=== PATIENT | male | born 1945 | race Caucasian/White ===

== ENCOUNTER 2018-05-21 10:00 | Inpatient (IN) | payer MEDICARE, OTHER, SELFPAY ==
[2018-05-21] VITALS (12 sets, daily range): BP systolic 96–164; BP diastolic 61–82; PULSE 83–98; RESP 12–18; TEMP 36.2–36.7; O2SAT 87–96; BMI 20.9; BMI 24.7
--- NOTE | 2018-05-21 10:19 | CT_ITS ---
STUDY: CT ABDOMEN AND PELVIS WITHOUT CONTRAST REASON FOR EXAM: Male, 72 years old. GI bleed. History of diverticulitis. RADIATION DOSAGE (If Supplied By Facility): CTDIvol = ( 12.27 ) mGy, DLP = ( 656.09 ) mGycm TECHNIQUE: Transaxial images were obtained from the dome of the diaphragm to the symphysis pubis without oral contrast, and without intravenous contrast. Sagittal and coronal images were reconstructed. Individualized dose optimization techniques were used for this CT. COMPARISON: Comparison is made with prior examination dated January 01, 2013. FINDINGS: Calcification of the subcarinal lymph nodes. Increased markings in the lower lungs worse on the left side with cystic changes suggestive of chronic scarring. Calcified pleural plaques along the posteromedial aspect of the right hemithorax. Coronary artery calcification. Normal liver. There are multiple small gallstones. Normal spleen. There are pancreatic calcifications in the distribution of the ducts consistent with chronic pancreatitis. Normal bilateral adrenal glands. Normal right kidney. Normal left kidney. There is a moderate-sized hiatal hernia. Normal small intestine. There are multiple colonic diverticula consistent with diverticulosis. The appendix is visualized and appears normal. There is diffuse atherosclerotic calcification of the abdominal aorta, without a demonstrated aneurysm. Normal inferior vena cava. Normal retroperitoneum. Diffuse irregular thickening of the urinary bladder wall worse on the left side. Cystoscopy is recommended for further evaluation. There is enlargement of the prostate gland. It measures 3.7 cm x 4.8 cm. There is a left-sided inguinal hernia containing adipose tissue. There are diffuse degenerative changes of the visualized lumbar spine. Stable collapse of the L4 vertebrae. Prior laminectomy and fusion at the L3-L4 level. CT/Abdomen/Pelvis without Cont IMPRESSION: Multiple small gallstones. Calcifications in the pancreas suggestive of chronic pancreatitis. Diffuse irregular bladder wall thickening worse on the left side. Anal hernia. Electronically Signed: Magen Juan MD at 11:25 EST Tel [phone], Service support ,
--- NOTE | 2018-05-21 10:23 | ED.DCSUM_ITS ---
- ER Visit Summary Date of Service: 05/21/18 Chief Complaint: Bright red blood per rectum History of Present Illness: The patient is a 72 M patient states noted bright red blood after bowel movement at 8 AM this morning. Initial formed stools of blood, had additional 2 runny bloody stools since then. Mild lightheaded symptoms. No chest pains or shortness of breath. No anticoagulation medicines. History of diverticulitis in the past requiring hemicolectomy 1990. He states that colonoscopy [address] Guevara. No fever, chills, sweats. No urinary symptoms. No history of blood transfusions. Physical Examination: General: Alert and oriented ?3, no acute distress HEENT: Normocephalic, atraumatic. Moist mucosa membranes. Normal conjunctiva Neck: supple, nontender. Cardiovascular: Regular rate and rhythm, no murmurs Respiratory: Normal breath sounds, symmetric, no distress Abdomen: Soft, mild left lower quadrant tenderness with no guarding or rebound, nondistended Rectal: No hemorrhoids, dark red blood was noted. Guaiac positive. Extremities: Nontender, no edema, pulses intact ?4 Neuro: no focal neurological deficits. Skin: No pallor Test Results: Hemoglobin 12.7. Creatinine 2.01. BUN 39. Coags normal. UA pending. CT abdomen pelvis without contrast: Enlarged prostate irregular bladder. Gallstones. Calcifications of pancreas. Emergency Department Course and Treatment: Patient was guaiac positive. Orthostatic positive he states he is minimally lightheaded. Hemoglobin stable at 12.7. He had small episodes of bloody stools in the ED. He is not on any anticoagulation medicines. He did have a creatinine 2.01, last labs were from 2014 and records was normal at that time. There have been told he has had kidney insufficiency. Suspect new. States decreased oral intake, will add IV fluids. Secondary to mild pain left lower quadrant CT scan obtained rule out diverticulitis. This was negative. Have noted abnormal bladder thickening with enlarged prostate. We will add a UA. He has no urine symptoms. Spoke with Dr. Johnson who did a colonoscopy 4 years ago approximately on the patient's outpatient. He will follow as an inpatient. Spoke with hospitalist, Dr. Jones for admission. Treatment Plan: [] Disposition: Admission Impression: 1. GI bleed 2. Acute kidney injury This note was generated with Dragon dictation software. It may contain incorrect words, spelling, and punctuation that were not noted in review of the chart prior to signing ED Disposition - Plan for ED Patient: Disposition: Acute Care Hospital [facility] Chief Complaint: GI Bleed Diagnosis: Lower GI bleed, Acute kidney injury Referrals: Alberto Woods MD [Primary Care Provider] -
[2018-05-21] MEDS: 0.9% Normal Saline 1,000 ML 150 ML IV ×3 (10:49→21:47)
[2018-05-21 10:52] LABS: Absolute Lymphocyte Count 1.71 X10^3/ul (0.83-4.51); Absolute Neutrophil Count 4.9 X10^3/uL (2.0-7.7); Basophil# 0.09 X10^3/uL; Basophil% 1.1 % (0-1); Eosinophil# 0.09 X10^3/uL; Eosinophils% 1.1 % (0-5); Hematocrit 39.2 % (40-54); Hemoglobin 12.7 g/dl (13.0-16.5); Lymphocyte # 1.71 X10^3/ul (4.0); Lymphocyte % 21.7 % (19-41); Mean Corp Hgb Conc 32.4 g/gl (32-36); Mean Corpuscular Hgb 32.5 pg (27.0-32.0); Mean Corpuscular Volume 100.3 fL (80-94); Mean Platelet Vol. 11.8 fl (6.2-12.0); Monocyte# 1.14 X10^3/uL; Monocyte% 14.4 % (0-10); Neutrophil # 4.85 X10^3/uL (2.7-7.7); Neutrophil % 61.6 % (47-70); Platelet Count 241 K/mm3 (150-450); RBC Distribution Width CV 16.3 % (11.6-14.6); RBC Distribution Width SD 59.5 fl (35.1-43.9); Red Blood Count 3.91 M/mm3 (4.6-6.2); White Blood Count 7.9 K/mm3 (4.4-11.0)
[2018-05-21 10:54] LABS: POSITIVE COUNT NO; POSITIVE DIFFERENTIAL NO; POSITIVE MORPHOLOGY NO
[2018-05-21 10:57] LABS: Prothrombin Time (Protime)PT. 12.8 SECONDS (11.7-14.9)
[2018-05-21 10:58] LABS: Partial Thromboplast Time 30.9 Seconds (24.1-36.2)
[2018-05-21 11:04] LABS: Anion Gap 11 (5-15); BUN 39 mg/dL (7-18); BUN/Creat Ratio 19.4 RATIO (10-20); Chloride 101 mmol/L (98-107); Creatinine, Serum 2.01 mg/dL (0.70-1.30); EST Glomerular Filtration Rate 35 mL/min (>60); Est Glom Filt Rate - Afr Amer 42 mL/min (>60); Estimated Creatinine Clearance 31.88 ml/min; Glucose 87 mg/dL (74-106); Sodium Level 136 mmol/L (136-145)
--- NOTE | 2018-05-21 12:43 | HP.PCM_ITS ---
History of Present Illness Date of Admission: 05/21/18 Chief Complaint: rectal bleeding The patient is a 72 year old M past medical history as listed below including history of hemicolectomy on account of diverticular disease. He was admitted through the ED on 05/21/2018 with a complaint of rectal bleeding which started around 8 AM this morning. Bleeding was painless consider mario blood. He denied any lightheadedness or dizziness or palpitations or abdominal pain. He had 3 episodes of such rectal bleeding and so decided to come to the ED. Vitals in the ED showed blood pressure of 96/61 was otherwise stable. Labs showed creatinine of 2.01 with baseline being around 0.8. CBC showed hemoglobin of 12.7 and platelets of 241. CT of the abdomen and pelvis showed multiple gallstones with calcifications in the pancreas suggestive of chronic pancreatitis and diffuse irregular bladder wall thickening was on the left side as well as an anal hernia and multiple colonic diverticula consistent with diverticulosis. He has been admitted to be managed for lower GI bleeding due to diverticulosis. [] Past Medical History Past Medical History (Chronic Problems): Chronic Problems History of chronic obstructive pulmonary disease (Chronic) Benign prostatic hypertrophy (Chronic) COPD (chronic obstructive pulmonary disease) (Chronic) Essential hypertension (Chronic) Diverticulosis of colon without diverticulitis (Chronic) s/p left hemicolectomy 1990 for diverticulitis DJD (degenerative joint disease) (Chronic) Allergies atorvastatin calcium [From Lipitor] Adverse Reaction (Verified 05/21/18 10:02) Pain in joints lisinopril Adverse Reaction (Verified 05/21/18 10:02) Swelling Home Medications: Ambulatory Orders Medication Instructions Recorded Metoprolol Tartrate [Lopressor 50 mg PO BID 12/01/13 (beta elizabeth)] Simvastatin [Zocor] 40 mg PO QHS 12/01/13 Tamsulosin HCl [Flomax] 0.4 mg PO DAILY 12/01/13 Amlodipine [Norvasc] 5 mg PO DAILY 05/16/15 Budesonide/Formoterol 160/4.5 2 puff INHALATION BID 05/16/15 [Symbicort 160/4.5 Mcg Inhaler (SP)] Multivitamins,Therapeutic 1 tab PO DAILY 05/16/15 [Multivitamin] Sildenafil Citrate [Viagra] 100 mg PO PRN PRN 05/16/15 traMADol [Ultram] 50 mg PO Q6H PRN PRN 05/16/15 Esomeprazole Mag Trihydrate 20 mg PO DAILY 05/21/18 [Nexium] Surgical History: - - hemicolectomy due to diverticular disease Psychiatric History: No pertinent psych hx Lives: Spouse/ Significant Other Smoking Status: Former smoker Tobacco Use: Non-smoker Alcohol: None Drugs: None - *Family History Maternal History Items: Cancer Review of Systems Constitutional: Denies: Chills, Fever, Malaise, Weakness, Weight Change, Fatigue HEENT: Denies: Head Aches, Sinus Congestion, Sinus Drainage Cardiovascular: Denies: Chest Pain, Palpitations Respiratory: Denies: Cough, Shortness of Breath, Shortness of breath at rest, Sputum production Gastrointestinal: Reports: Hematochezia. Denies: Abdominal Pain, Hematemesis, Nausea, Melena, Vomiting Genitourinary: Denies: Dysuria Musculoskeletal: Denies: Joint Pain, Joint Tenderness Skin: Denies: Rash, Wounds Neurological: Denies: Numbness, Tingling, Focal weakness Psychiatric: Denies: Anxiety, Depression, Homicidal Ideations, Suicidal Ideations Hematologic/ Lymphatic: Denies: Easy Bruising, Easy Bleeding VTE Information - Inpt Only VTE Present on Admission: No VTE Mechan Device Prophylaxis: SCD's VTE Pharm Prophylaxis ordered?: Yes Reason prophylaxis not ordered:: Medical Contraindication - rectal bleeding Patient Problems: Active and Suspected Problems Lower GI bleed (Acute) Acute kidney injury (Acute) - Physical Exam General: Alert, Oriented x3, Cooperative, No apparent distress HEENT: Atraumatic, PERRLA, EOMI, Normocephalic Oral: Moist Mucosa Neck: Supple, No JVD, Negative Carotid Bruits Lungs: Clear to auscultation, Normal air movement, No rhonchi, No wheeze, No rales Cardiovascular: Regular rate, Regular Rhythm, Normal S1, Normal S2, No murmurs Abdomen: Bowel Sounds Present, Soft, Non Tender, Non-Distended, No Hepato- splenomegaly Extremities: No clubbing, No cyanosis, No edema, Capillary Refill Less than 3 Seconds Skin: No rashes, No breakdown Musculoskeletal: No Tenderness to Palpation of Joints or Extremities Lymphatic: No Cervical, Supraclavicular, or Inguinal Adenopathy Neurological: Cranial nerves II-XII grossly intact, Neuro grossly intact, Motor Exam 5/5 strength throughout Psych/Mental Status: Normal Affect, Appropriate, Alert and oriented to time, place, person, mood and affect Vital Signs Temp Pulse Resp BP Pulse Ox 97.2 F L 86 17 136/76 H 87 05/21/18 10:03 05/21/18 10:45 05/21/18 10:42 05/21/18 10:45 05/21/18 10:42 Oxygen Delivery Method Room Air Weight: 154 lb 1.65 oz Body Mass Index (BMI) 20.9 Microbiology Past 72 Hours 05/21/18 10:25 Stool Occult Blood (VARGAS) - Final Stool Occult Blood Positive Laboratory Tests Past 24 Hrs 05/21/18 05/21/18 05/21/18 10:36 10:36 10:36 WBC 7.9 RBC 3.91 L Hgb 12.7 L Hct 39.2 L MCV 100.3 H MCH 32.5 H MCHC 32.4 RDW 16.3 H RDW Differential 59.5 H Plt Count 241 MPV 11.8 Immature Gran % (Auto) 0.100 Neut % (Auto) 61.6 Lymph % (Auto) 21.7 [place] % (Auto) 14.4 H Eos % (Auto) 1.1 Baso % (Auto) 1.1 H Absolute Neuts (auto) 4.9 Absolute Lymphs (auto) 1.71 Total Counted Not Reportable PT 12.8 INR 1.0 APTT 30.9 Sodium 136 Potassium 4.0 Chloride 101 Carbon Dioxide 24.0 Anion Gap 11 BUN 39 H Creatinine 2.01 H Estim Creat Clear Calc 31.88 Est GFR (MDRD) Af Amer 42 L Est GFR (MDRD) Non-Af 35 L BUN/Creatinine Ratio 19.4 Glucose 87 Calcium 9.0 Blood Type Antibody Screen 05/21/18 10:36 WBC RBC Hgb Hct MCV MCH MCHC RDW RDW Differential Plt Count MPV Immature Gran % (Auto) Neut % (Auto) Lymph % (Auto) [place] % (Auto) Eos % (Auto) Baso % (Auto) Absolute Neuts (auto) Absolute Lymphs (auto) Total Counted PT INR APTT Sodium Potassium Chloride Carbon Dioxide Anion Gap BUN Creatinine Estim Creat Clear Calc Est GFR (MDRD) Af Amer Est GFR (MDRD) Non-Af BUN/Creatinine Ratio Glucose Calcium Blood Type O POSITIVE Antibody Screen NEGATIVE Diagnostic Data Abdomen/Pelvis CT 05/21/18 10:19 IMPRESSION: Multiple small gallstones. Calcifications in the pancreas suggestive of chronic pancreatitis. Diffuse irregular bladder wall thickening worse on the left side. Anal hernia. Electronically Signed: Magen Juan MD at 11:25 EST Tel [phone], Service support , Assessment/Plan All Active Problems Lower GI bleed (Acute) Acute kidney injury (Acute) Hypoxia (Acute) Syncope and collapse (Acute) Pleural effusion on left (Acute) Lower gastrointestinal bleeding (Resolved) 72 y/o male with a history of diverticular disease presenting with a complaint of rectal bleeding which started this morning. 1. Lower Gi bleed due to diverticular bleed * has a history of such bleeds in the past, and has had hemicolectomy due to diverticular bleed * will admit to [facility] with telemetry * keep NPO for now * IVF NS @ 150cc/hr * general surgery (Dr Guevara) consulted * 2. ?KIMBERLY: * Cr is 2.01. * Baseline from 2015 was ~ 0.7. * Denies any diagnosis of CKD since then. * WIll hydrate and monitor for improvement. 3. Hypertension: stable. On amlodipine 5mg daily and metoprolol 50mg bid. Will continue 4. COPD: on symbicort. WIll give breathing treatments 5. Hyperlipidemia: on simvastatin 6. BPH: on tamsulosin. DVT prophylaxis: SCDs. No anticoagulant o/a of rectal bleeding. Code status: Patient counseled extensively about different types of CODE STATUS including full code, DNR CCA and DNR CCA. Patient elects to be full code. Total [id number] time 17 minutes. Code Visit Inpatient E&M: 72346 Init Hosp L3 Procedures: 79095 Advncd Care Plan 30 Min
--- NOTE | 2018-05-21 12:47 | NURSING ---
124 GI BLEED, KIMBERLY KIRBY
[2018-05-21] MEDS: Albuterol 2.5 MG/3 ML VIAL.NEB. INHALATION (18:40)
[2018-05-21] MEDS: Budesonide Respules 0.5 MG/2 ML AMPUL.NEB. INHALATION (18:40)
--- NOTE | 2018-05-21 20:04 | PCM.CONS.GEN ---
Reason for Consult Date of Consultation: 05/21/18 Reason for Consultation: GI bleed History of Present Illness: The patient is a 72 year old M presents with what he notes to be 8 bloody bowel movements for the last 24 hours. The patient noted relatively normal bowel movement followed by what he described his liquid watery bloody stool for which the multiple liquid bloody bowel movements. He presented to the hospital and was found to have mild lower abdominal tenderness. He was found to be guaiac positive. A CT scan was obtained which demonstrated diverticulosis without additional abdominal pathology. I evaluated the patient 2013 performing upper and lower endoscopy are similar episode. At that time the patient had a mild gastritis and pancolitis. He was felt that his GI bleed source was likely a diverticular bleed. In 2014, the patient had approximately 20 pound weight loss after a diagnosis of pneumonia and epigastric symptoms. I performed upper endoscopy at that time which demonstrated gastritis a small hiatal hernia and some distal esophagitis. The patient was maintained in a proton pump inhibitor was doing well since that time prior to these events. The patient is a past history of her syncope, hypercholesterolemia, COPD and benign prostatic hypertrophy. he underwent a sigmoid resection for diverticulitis in the . He is also undergoing through to perfusion in addition to multiple endoscopies. Past Medical History Past Medical History (Chronic Problems): Chronic Problems History of chronic obstructive pulmonary disease (Chronic) Benign prostatic hypertrophy (Chronic) COPD (chronic obstructive pulmonary disease) (Chronic) Essential hypertension (Chronic) Diverticulosis of colon without diverticulitis (Chronic) s/p left hemicolectomy 1990 for diverticulitis DJD (degenerative joint disease) (Chronic) Allergies atorvastatin calcium [From Lipitor] Adverse Reaction (Verified 05/21/18 10:02) Pain in joints lisinopril Adverse Reaction (Verified 05/21/18 10:02) Swelling Home Medications: Ambulatory Orders Medication Instructions Recorded Metoprolol Tartrate [Lopressor 50 mg PO BID 12/01/13 (beta elizabeth)] Simvastatin [Zocor] 40 mg PO QHS 12/01/13 Tamsulosin HCl [Flomax] 0.4 mg PO DAILY 12/01/13 Amlodipine [Norvasc] 5 mg PO DAILY 05/16/15 Budesonide/Formoterol 160/4.5 2 puff INHALATION BID 05/16/15 [Symbicort 160/4.5 Mcg Inhaler (SP)] Multivitamins,Therapeutic 1 tab PO DAILY 05/16/15 [Multivitamin] Sildenafil Citrate [Viagra] 100 mg PO PRN PRN 05/16/15 traMADol [Ultram] 50 mg PO Q6H PRN PRN 05/16/15 Esomeprazole Mag Trihydrate 20 mg PO DAILY 05/21/18 [Nexium] Surgical History: - - hemicolectomy due to diverticular disease Psychiatric History: No pertinent psych hx Lives: Spouse/ Significant Other Smoking Status: Former smoker Tobacco Use: Non-smoker Alcohol: None Drugs: None - *Family History Maternal History Items: Cancer Review of Systems Constitutional: Denies: Chills, Fever, Weight Change HEENT: Denies: Head Aches, Sinus Congestion, Sinus Drainage Cardiovascular: Denies: Chest Pain, Palpitations Respiratory: Denies: Cough, Shortness of breath at rest, Sputum production Gastrointestinal: Reports: Hematochezia. Denies: Abdominal Pain, Nausea, Vomiting Genitourinary: Denies: Dysuria Musculoskeletal: Denies: Joint Pain, Joint Tenderness Skin: Denies: Rash, Wounds Neurological: Denies: Numbness, Tingling, Focal weakness Psychiatric: Denies: Anxiety, Depression, Homicidal Ideations, Suicidal Ideations Hematologic/ Lymphatic: Denies: Easy Bruising, Easy Bleeding Patient Problems: Active and Suspected Problems Lower GI bleed (Acute) Acute kidney injury (Acute) - Physical Exam General: Alert, Oriented x3, Cooperative HEENT: Atraumatic, PERRLA, EOMI, Normocephalic Neck: Supple, No JVD, Negative Carotid Bruits Lungs: Clear to auscultation, Normal air movement Cardiovascular: Regular rate, No murmurs Abdomen: Bowel Sounds Present, Soft, Non Tender Extremities: No edema, Capillary Refill Less than 3 Seconds Skin: No rashes, No breakdown Musculoskeletal: No Tenderness to Palpation of Joints or Extremities Neurological: Cranial nerves II-XII grossly intact Psych/Mental Status: Normal Affect, Appropriate Vital Signs Temp Pulse Resp BP Pulse Ox 97.9 F 91 18 139/79 H 92 05/21/18 17:09 05/21/18 18:41 05/21/18 18:41 05/21/18 17:09 05/21/18 18:41 Oxygen Delivery Method Room Air Weight: 83 kg Body Mass Index (BMI) 24.7 Intake and Output for Last 24 Hours 05/19/18 05/20/18 05/21/18 23:59 23:59 23:59 Intake Total 258 / 258 Balance 258 / 258 Microbiology Past 72 Hours 05/21/18 10:25 Stool Occult Blood (VARGAS) - Final Stool Occult Blood Positive Laboratory Tests Past 24 Hrs 05/21/18 05/21/18 05/21/18 10:36 10:36 10:36 WBC 7.9 RBC 3.91 L Hgb 12.7 L Hct 39.2 L MCV 100.3 H MCH 32.5 H MCHC 32.4 RDW 16.3 H RDW Differential 59.5 H Plt Count 241 MPV 11.8 Immature Gran % (Auto) 0.100 Neut % (Auto) 61.6 Lymph % (Auto) 21.7 [place] % (Auto) 14.4 H Eos % (Auto) 1.1 Baso % (Auto) 1.1 H Absolute Neuts (auto) 4.9 Absolute Lymphs (auto) 1.71 Total Counted Not Reportable PT 12.8 INR 1.0 APTT 30.9 Sodium 136 Potassium 4.0 Chloride 101 Carbon Dioxide 24.0 Anion Gap 11 BUN 39 H Creatinine 2.01 H Estim Creat Clear Calc 31.88 Est GFR (MDRD) Af Amer 42 L Est GFR (MDRD) Non-Af 35 L BUN/Creatinine Ratio 19.4 Glucose 87 Calcium 9.0 Blood Type Antibody Screen 05/21/18 10:36 WBC RBC Hgb Hct MCV MCH MCHC RDW RDW Differential Plt Count MPV Immature Gran % (Auto) Neut % (Auto) Lymph % (Auto) [place] % (Auto) Eos % (Auto) Baso % (Auto) Absolute Neuts (auto) Absolute Lymphs (auto) Total Counted PT INR APTT Sodium Potassium Chloride Carbon Dioxide Anion Gap BUN Creatinine Estim Creat Clear Calc Est GFR (MDRD) Af Amer Est GFR (MDRD) Non-Af BUN/Creatinine Ratio Glucose Calcium Blood Type O POSITIVE Antibody Screen NEGATIVE Assessment/Plan All Active Problems Lower GI bleed (Acute) Acute kidney injury (Acute) Hypoxia (Acute) Syncope and collapse (Acute) Pleural effusion on left (Acute) Lower gastrointestinal bleeding (Resolved) GI bleed, previous history of gastritis and dense diverticulosis with a previous presumed lower GI/diverticular bleed My plan is to perform a gentle bowel prep this evening and proceed with upper and lower endoscopy tomorrow to see if we delineate the source of bleeding. The patient understands the risks, benefits, complications and possible alternatives and consents to the planned endoscopic procedure.
[2018-05-21] MEDS: Metoprolol Tartrate 50 MG Tablet PO (21:40)
[2018-05-21] MEDS: Electrolyte Solution/Peg's 4000 ML 2000 ML PO (21:41)
[2018-05-22] VITALS (15 sets, daily range): BP systolic 91–154; BP diastolic 62–84; PULSE 66–90; RESP 16–18; TEMP 36.6–37.1; O2SAT 92–94; BMI 24.7
--- NOTE | 2018-05-22 | IMM_PTH ---
PATIENT: MONIQUE PARRA LOC: [facility] U#:[id number] AGE/SX: 72/M ROOM: [facility] RE05/21/[address]: Dr. Ele Jones MD : 1945 BED: 1 DIS: 05/22/2018 SPEC #: [id number] RECD: 05/24/18 14:51 STATUS: SOUT REQ #: [id number] INNA: 05/22/18 00:[address]: Luis Felipe Guevara DEPT: IMMUNOHISTOCHEMISTRY RECD BY: Dawn Marquez ENTERED: 05/24/18 14:51 SP TYPE: IMMUNO OTHR DR: MD Dr. Ele Lilly MD Dr. Richard Guttman, MD Tissues: A - Stomach, NOS Procedures: H Pylori (initial) Comments: @ Ordering doctor for H.PYLORI edited from to DR.RGUTTM Heredia by MARY at 05/24/18 1507 @ Submitting doctor edited from to DR.RGUTTM Heredia by MARY at 05/24/18 1507 PHYSICIAN & INSTITUTION [place] [id number] SPECIMEN INFORMATION: Tissue Source: A - Antral biopsy Clinical Info: Lower GI bleed Specimen Number: [id number] CPT code: 88053 METHODOLOGY: Deparaffinized sections of prefer/formalin-fixed tissue or PAP/DQ stained slides are incubated with monoclonal/polyclonal antibodies/oligonucleotide probes. Localization is made via biotin free immunoperoxidase method. Appropriate controls are performed and reacted as expected. Results on target cell population are indicated in the following table: RESULTS: ANTIBODY / CLONE RESULT Block A H Pylori (polyclonal) negative These tests were developed and their performance characteristics determined by [facility]. They may not have been cleared or approved by the [place].S. Food and Drug Administration. The FDA has determined that such clearance or approval is not necessary. INTERPRETATION: A. Antral biopsy: Negative for Helicobacter pylori organisms. SJ:ezequiel 05/24/18
[2018-05-22] MEDS: 0.9% Normal Saline 1,000 ML 150 ML IV ×2 (03:57→10:19)
--- NOTE | 2018-05-22 05:55 | EKG12_ITS ---
Test Reason : AM Blood Pressure : / mmHG Vent. Rate : 085 BPM Atrial Rate : 085 BPM P-R Int : 148 ms QRS Dur : 096 ms QT Int : 380 ms P-R-T Axes : 060 055 051 degrees QTc Int : 452 ms Normal sinus rhythm Normal ECG When compared with ECG of 16-MAY-2015 10:02, No significant change was found Confirmed by JOSE ANTONIO ALEGRIA, FORTUNATO ([id number]), continuity editor TRESA SANTIAGO ([id number]) on 05/24/2018 2:32:03 PM Referred By: MIRTA Confirmed By:FORTUNATO BRADY MD
--- NOTE | 2018-05-22 05:55 | RAD_ITS ---
STUDY: X-RAY CHEST REASON FOR EXAM: Male, 72 years old. COPD TECHNIQUE: Single frontal view of the chest. COMPARISON: 05/16/2015 FINDINGS: Chronic interstitial lung changes without superimposed acute alveolar disease. There is no demonstrated pleural abnormality. Normal size heart. Normal mediastinum and vickie. Normal visualized pulmonary arteries. Normal visualized aortic arch and descending thoracic aorta. Normal visualized thoracic spine. There is degenerative osteoarthritis of the bilateral shoulders. There is no demonstrated abnormality of the visualized soft tissue structures of the upper abdomen. RAD/Chest 1 View (Portable) IMPRESSION: Chronic interstitial lung changes without superimposed acute alveolar disease. Electronically Signed: Jaylon Chappell MD at 8:49 EST Tel , Service support ,
[2018-05-22 06:06] LABS: Absolute Lymphocyte Count 1.36 X10^3/ul (0.83-4.51); Absolute Neutrophil Count 6.2 X10^3/uL (2.0-7.7); Basophil# 0.07 X10^3/uL; Basophil% 0.8 % (0-1); Eosinophil# 0.01 X10^3/uL; Eosinophils% 0.1 % (0-5); Hematocrit 31.3 % (40-54); Hemoglobin 10.4 g/dl (13.0-16.5); Lymphocyte # 1.36 X10^3/ul (4.0); Lymphocyte % 15.2 % (19-41); Mean Corp Hgb Conc 33.2 g/gl (32-36); Mean Corpuscular Hgb 32.9 pg (27.0-32.0); Mean Corpuscular Volume 99.1 fL (80-94); Mean Platelet Vol. 12.4 fl (6.2-12.0); Monocyte# 1.36 X10^3/uL; Monocyte% 15.2 % (0-10); Neutrophil # 6.15 X10^3/uL (2.7-7.7); Neutrophil % 68.6 % (47-70); Platelet Count 215 K/mm3 (150-450); RBC Distribution Width CV 16.7 % (11.6-14.6); RBC Distribution Width SD 57.4 fl (35.1-43.9); Red Blood Count 3.16 M/mm3 (4.6-6.2)
[2018-05-22 06:08] LABS: POSITIVE COUNT NO; POSITIVE DIFFERENTIAL NO; POSITIVE MORPHOLOGY NO
[2018-05-22 06:25] LABS: Anion Gap 13 (5-15); BUN 33 mg/dL (7-18); BUN/Creat Ratio 23.7 RATIO (10-20); Calcium,Total 8.3 mg/dL (8.5-10.1); Chloride 103 mmol/L (98-107); Creatinine, Serum 1.39 mg/dL (0.70-1.30); EST Glomerular Filtration Rate 53 mL/min (>60); Est Glom Filt Rate - Afr Amer 64 mL/min (>60); Estimated Creatinine Clearance 51.18 ml/min; Glucose 80 mg/dL (74-106); Potassium 4.1 mmol/L (3.5-5.1); Sodium Level 140 mmol/L (136-145)
[2018-05-22] MEDS: Budesonide Respules 0.5 MG/2 ML AMPUL.NEB. INHALATION (06:58)
[2018-05-22] MEDS: Albuterol 2.5 MG/3 ML VIAL.NEB. INHALATION (06:58)
[2018-05-22] MEDS: Metoprolol Tartrate 50 MG Tablet PO (08:08)
--- NOTE | 2018-05-22 10:10 | CASEMGMT ---
ZOË MARTINEZ assessment: Face to Face with patient for initial transition planning/care coordination assessment. ZOË MARTINEZ introduced self and role at [facility], pt voices understanding and consents to assessment at this time. Pt is sitting up in bed in no distress at this time. Pt is A/Ox4 at this time and answers al questions appropriately at this time. Pt is awaiting colonoscopy at this time. Care providers, pharmacy, and demographics verified at this time. PCP: Peggy Specialists: arnol Powell; Zion, back surgeon at [facility] Preferred Pharmacy: [facility] Insurance: [employer] A/B, Thanx Prescription Benefit: Silver Rx Living Will/HPOA: Pt states has LW/HPOA and that his , Tomás Kathleen, is HPOA. AD are not on file at [facility] at this time and pt is aware. LNOK: Tomás Kathleen, Living Arrangements: Pt states lives with on main level of [employer] [place] and states no concerns a home at this time. Pt states no concerns with ADL's at this time. Transportation: Pt states drives self and states no transportation concerns at this time. DME/HHC: Pt states has the following DME: grab bars, shower chair, raised toilet seat, cane, walker, pulse ox, and home oxygen 2 liters at bedtime and prn through [facility]. Pt states no further DME at this time and states that he will be talking to [facility] about transfer of home oxygen. Pt states no hx of HHC or SNF at this time. Pt states no concerns with going home at time of discharge. Pt states is retired. Pt states does not smoke but does drink bourbon daily. Pt states no further concerns/needs at this time. CM to follow for any further discharge planning/needs. Advised pt to ask for CM if any further questions/concerns/needs arise, voices understanding. Plan: [place] ZOË MARTINEZ
--- NOTE | 2018-05-22 10:58 | PCM.PN.HOSP ---
Patient Problems: Active and Suspected Problems Lower GI bleed (Acute) Acute kidney injury (Acute) Subjective: Patient seen and examined. He had a scanty amount of bloody bowel movement overnight. He denies any fever chills, cough or chest pain, shortness of breath, abdominal pain, diarrhea vomiting. He is awaiting EGD and colonoscopy this morning. Labs and vitals reviewed. General surgery on board. Vitals/I&O's: Vital Signs Temp Pulse Resp BP Pulse Ox 97.9 F 90 16 149/82 H 93 05/22/18 08:10 05/22/18 08:10 05/22/18 08:10 05/22/18 08:10 05/22/18 08:10 Oxygen Delivery Method Room Air Weight: 182 lb 15.739 oz Body Mass Index (BMI) 24.7 Intake and Output for Last 24 Hours 05/20/18 05/21/18 05/22/18 23:59 23:59 23:59 Intake Total 1225 / 1225 984 / 984 Output Total 800 / 800 Balance 1225 / 1225 184 / 184 General: Alert, Oriented x3, Cooperative, No apparent distress HEENT: Atraumatic, PERRLA, EOMI, Normocephalic Oral: Moist Mucosa Neck: Supple, No JVD, Negative Carotid Bruits Lungs: Clear to auscultation, Normal air movement, No rhonchi, No wheeze, No rales Cardiovascular: Regular rate, Regular Rhythm, Normal S1, Normal S2, No murmurs Abdomen: Bowel Sounds Present, Soft, Non Tender, Non-Distended, No Hepato-splenomegaly Extremities: No clubbing, No cyanosis, No edema, Capillary Refill Less than 3 Seconds Skin: No rashes, No breakdown Musculoskeletal: No Tenderness to Palpation of Joints or Extremities Lymphatic: No Cervical, Supraclavicular, or Inguinal Adenopathy Neurological: Cranial nerves II-XII grossly intact, Neuro grossly intact, Motor Exam 5/5 strength throughout Psych/Mental Status: Normal Affect, Appropriate, Alert and oriented to time, place, person, mood and affect Microbiology Past 72 Hours 05/21/18 10:25 Stool Stool Occult Blood (VARGAS) - Final Occult Blood Positive Laboratory Results 05/21/18 10:36: PT 12.8, INR 1.0, APTT 30.9 05/21/18 10:36: Sodium 136, Potassium 4.0, Chloride 101, Carbon Dioxide 24.0, Anion Gap 11, BUN 39 H, Creatinine 2.01 H, Estim Creat Clear Calc 31.88, Est GFR (MDRD) Af Amer 42 L, Est GFR (MDRD) Non-Af 35 L, BUN/Creatinine Ratio 19.4, Glucose 87, Calcium 9.0 05/21/18 10:36: Blood Type O POSITIVE, Antibody Screen NEGATIVE 05/22/18 04:50: WBC 9.0, RBC 3.16 L, Hgb 10.4 L, Hct 31.3 L, MCV 99.1 H, MCH 32.9 H, MCHC 33.2, RDW 16.7 H, RDW Differential 57.4 H, Plt Count 215, MPV 12.4 H, Immature Gran % (Auto) 0.100, Neut % (Auto) 68.6, Lymph % (Auto) 15.2 L, [place] % (Auto) 15.2 H, Eos % (Auto) 0.1, Baso % (Auto) 0.8, Absolute Neuts (auto) 6.2, Absolute Lymphs (auto) 1.36, Total Counted Not Reportable 05/22/18 04:50: Sodium 140, Potassium 4.1, Chloride 103, Carbon Dioxide 24.0, Anion Gap 13, BUN 33 H, Creatinine 1.39 H, Estim Creat Clear Calc 51.18, Est GFR (MDRD) Af Amer 64, Est GFR (MDRD) Non-Af 53 L, BUN/Creatinine Ratio 23.7 H, Glucose 80, Calcium 8.3 L Diagnostic Data Abdomen/Pelvis CT 05/21/18 10:19 IMPRESSION: Multiple small gallstones. Calcifications in the pancreas suggestive of chronic pancreatitis. Diffuse irregular bladder wall thickening worse on the left side. Anal hernia. Electronically Signed: Magen Juan MD at 11:25 EST Tel [phone], Service support , Chest X-Ray 05/22/18 05:55 IMPRESSION: Chronic interstitial lung changes without superimposed acute alveolar disease. Electronically Signed: Jaylon Chappell MD at 8:49 EST Tel , Service support , Current Medications Albuterol Sulfate (Ventolin Aerosols) 2.5 mg INHALATION Q6HWA.RT [facility] Last Admin: 05/22/18 06:58 Dose: 2.5 mg Amlodipine Besylate (Norvasc) 5 mg PO DAILY DAVID Budesonide (Pulmicort Aerosol) 0.5 mg INHALATION Q12H.RT [facility] Last Admin: 05/22/18 06:58 Dose: 0.5 mg Sodium Chloride () 1,000 mls @ 100 mls/hr IV .Q10H DAVID Magnesium Hydroxide (Milk Of Magnesia) 30 ml PO DAILY PRN PRN PRN Reason: Constipation Metoprolol Tartrate (Lopressor (Beta Oneil)) 50 mg PO BID [facility] Last Admin: 05/22/18 08:08 Dose: 50 mg Multivitamins (Multivitamin) 1 tablet PO DAILY@1200 DAVID Simvastatin (Zocor) 40 mg PO QHS [facility] Last Admin: 05/21/18 21:40 Dose: 40 mg Sodium Chloride () 5 - 30 ml IV UD PRN PRN Reason: SALINE FLUSH Tamsulosin HCl (Flomax) 0.4 mg PO DAILY@1730 [facility] Last Admin: 05/21/18 17:15 Dose: Not Given Tramadol HCl (Ultram) 50 mg PO Q6H PRN PRN PRN Reason: PAIN Medical Necessity - Tobacco Use Smoking Status: Former smoker Tobacco Use: Non-smoker Assessment/Plan All Active Problems Lower GI bleed (Acute) Acute kidney injury (Acute) Hypoxia (Acute) Syncope and collapse (Acute) Pleural effusion on left (Acute) Lower gastrointestinal bleeding (Resolved) 1. Lower GI bleed likely due to diverticular bleed had scanty amount of rectal bleeding overnight. remains on IVF general surgery on board; for EGD and colonoscopy today 2. KIMBERLY: Cr was 2.01 on admission and has trended down to 1.39. Continue IV fluids and monitor. 3. Hypertension: stable. On amlodipine 5mg daily and metoprolol 50mg bid. 4. COPD: on symbicort. On breathing treatments as needed. 5. Hyperlipidemia: on simvastatin 6. BPH: on tamsulosin. DVT prophylaxis: SCDs. No anticoagulant o/a of rectal bleeding. Code Visit Inpatient E&M: 69240 [facility] L3
--- NOTE | 2018-05-22 11:02 | PN_ITS ---
Patient Problems: Active and Suspected Problems Lower GI bleed (Acute) Acute kidney injury (Acute) Subjective: Patient seen and examined. He had a scanty amount of bloody bowel movement overnight. He denies any fever chills, cough or chest pain, shortness of breath, abdominal pain, diarrhea vomiting. He is awaiting EGD and colonoscopy this morning. Labs and vitals reviewed. General surgery on board. Vitals/I&O's: Vital Signs Temp Pulse Resp BP Pulse Ox 97.9 F 90 16 149/82 H 93 05/22/18 08:10 05/22/18 08:10 05/22/18 08:10 05/22/18 08:10 05/22/18 08:10 Oxygen Delivery Method Room Air Weight: 182 lb 15.739 oz Body Mass Index (BMI) 24.7 Intake and Output for Last 24 Hours 05/20/18 05/21/18 05/22/18 23:59 23:59 23:59 Intake Total 1225 / 1225 984 / 984 Output Total 800 / 800 Balance 1225 / 1225 184 / 184 General: Alert, Oriented x3, Cooperative, No apparent distress HEENT: Atraumatic, PERRLA, EOMI, Normocephalic Oral: Moist Mucosa Neck: Supple, No JVD, Negative Carotid Bruits Lungs: Clear to auscultation, Normal air movement, No rhonchi, No wheeze, No rales Cardiovascular: Regular rate, Regular Rhythm, Normal S1, Normal S2, No murmurs Abdomen: Bowel Sounds Present, Soft, Non Tender, Non-Distended, No Hepato- splenomegaly Extremities: No clubbing, No cyanosis, No edema, Capillary Refill Less than 3 Seconds Skin: No rashes, No breakdown Musculoskeletal: No Tenderness to Palpation of Joints or Extremities Lymphatic: No Cervical, Supraclavicular, or Inguinal Adenopathy Neurological: Cranial nerves II-XII grossly intact, Neuro grossly intact, Motor Exam 5/5 strength throughout Psych/Mental Status: Normal Affect, Appropriate, Alert and oriented to time, place, person, mood and affect Microbiology Past 72 Hours 05/21/18 10:25 Stool Stool Occult Blood (VARGAS) - Final Occult Blood Positive Laboratory Results 05/21/18 10:36: PT 12.8, INR 1.0, APTT 30.9 05/21/18 10:36: Sodium 136, Potassium 4.0, Chloride 101, Carbon Dioxide 24.0, Anion Gap 11, BUN 39 H, Creatinine 2.01 H, Estim Creat Clear Calc 31.88, Est GFR (MDRD) Af Amer 42 L, Est GFR (MDRD) Non-Af 35 L, BUN/Creatinine Ratio 19.4, Glucose 87, Calcium 9.0 05/21/18 10:36: Blood Type O POSITIVE, Antibody Screen NEGATIVE 05/22/18 04:50: WBC 9.0, RBC 3.16 L, Hgb 10.4 L, Hct 31.3 L, MCV 99.1 H, MCH 32.9 H, MCHC 33.2, RDW 16.7 H, RDW Differential 57.4 H, Plt Count 215, MPV 12.4 H, Immature Gran % (Auto) 0.100, Neut % (Auto) 68.6, Lymph % (Auto) 15.2 L, [place] % (Auto) 15.2 H, Eos % (Auto) 0.1, Baso % (Auto) 0.8, Absolute Neuts (auto) 6.2, Absolute Lymphs (auto) 1.36, Total Counted Not Reportable 05/22/18 04:50: Sodium 140, Potassium 4.1, Chloride 103, Carbon Dioxide 24.0, Anion Gap 13, BUN 33 H, Creatinine 1.39 H, Estim Creat Clear Calc 51.18, Est GFR (MDRD) Af Amer 64, Est GFR (MDRD) Non-Af 53 L, BUN/Creatinine Ratio 23.7 H, Glucose 80, Calcium 8.3 L Diagnostic Data Abdomen/Pelvis CT 05/21/18 10:19 IMPRESSION: Multiple small gallstones. Calcifications in the pancreas suggestive of chronic pancreatitis. Diffuse irregular bladder wall thickening worse on the left side. Anal hernia. Electronically Signed: Magen Juan MD at 11:25 EST Tel [phone], Service support , Chest X-Ray 05/22/18 05:55 IMPRESSION: Chronic interstitial lung changes without superimposed acute alveolar disease. Electronically Signed: Jaylon Chappell MD at 8:49 EST Tel , Service support , Current Medications Albuterol Sulfate (Ventolin Aerosols) 2.5 mg INHALATION Q6HWA.RT [facility] Last Admin: 05/22/18 06:58 Dose: 2.5 mg Amlodipine Besylate (Norvasc) 5 mg PO DAILY DAVID Budesonide (Pulmicort Aerosol) 0.5 mg INHALATION Q12H.RT [facility] Last Admin: 05/22/18 06:58 Dose: 0.5 mg Sodium Chloride () 1,000 mls @ 100 mls/hr IV .Q10H DAVID Magnesium Hydroxide (Milk Of Magnesia) 30 ml PO DAILY PRN PRN PRN Reason: Constipation Metoprolol Tartrate (Lopressor (Beta Oneil)) 50 mg PO BID [facility] Last Admin: 05/22/18 08:08 Dose: 50 mg Multivitamins (Multivitamin) 1 tablet PO DAILY@1200 DAVID Simvastatin (Zocor) 40 mg PO QHS [facility] Last Admin: 05/21/18 21:40 Dose: 40 mg Sodium Chloride () 5 - 30 ml IV UD PRN PRN Reason: SALINE FLUSH Tamsulosin HCl (Flomax) 0.4 mg PO DAILY@1730 [facility] Last Admin: 05/21/18 17:15 Dose: Not Given Tramadol HCl (Ultram) 50 mg PO Q6H PRN PRN PRN Reason: PAIN Medical Necessity - Tobacco Use Smoking Status: Former smoker Tobacco Use: Non-smoker Assessment/Plan All Active Problems Lower GI bleed (Acute) Acute kidney injury (Acute) Hypoxia (Acute) Syncope and collapse (Acute) Pleural effusion on left (Acute) Lower gastrointestinal bleeding (Resolved) 1. Lower GI bleed likely due to diverticular bleed * had scanty amount of rectal bleeding overnight. * remains on IVF * general surgery on board; for EGD and colonoscopy today * 2. KIMBERLY: * Cr was 2.01 on admission and has trended down to 1.39. * Continue IV fluids and monitor. * 3. Hypertension: stable. On amlodipine 5mg daily and metoprolol 50mg bid. 4. COPD: on symbicort. On breathing treatments as needed. 5. Hyperlipidemia: on simvastatin 6. BPH: on tamsulosin. DVT prophylaxis: SCDs. No anticoagulant o/a of rectal bleeding. Code Visit Inpatient E&M: 64117 [facility] Hosp L3
--- NOTE | 2018-05-22 13:00 | COLBX_PTH ---
PATIENT: MONIQUE PARRA LOC: [facility] U#:[id number] AGE/SX: 72/M ROOM: [facility] RE05/21/[address]: Dr. Ele Jones MD : 1945 BED: 1 DIS: 05/22/2018 SPEC #: [id number] RECD: 05/22/18 13:00 STATUS: JEFFERSON SHIREEN #: [id number] INNA: 05/22/18 13:[address]: Luis Felipe Guevara DEPT: SURGICAL PATHOLOGY RECD BY: Dawn Marquez ENTERED: 05/22/18 15:26 SP TYPE: COLON BX OTHR DR: MD Dr. Ele Lilly MD Tissues: A - Stomach, NOS B - Cecum, NOS Procedures: Surgery Specimen Level IV HEADER OPERATION: Colonoscopy, EGD ([facility]) PRE-OP DIAGNOSIS: Lower GI bleed TISSUE SUBMITTED: A - Antral biopsy for pathology, B - Cecal polyps MICROSCOPIC DIAGNOSIS A. Antral biopsy: Mild gastritis. See microscopic description and comment. B. Cecal polyps, biopsy: Fragments of tubular adenoma. Fragments of fecal material. JOSEPH:ezequiel 05/24/18 COMMENT A. The results of immunohistochemistry for Helicobacter pylori will be reported separately ([id number]). MICROSCOPIC DESCRIPTION Slides are reviewed. A. The specimen shows fragments of gastric mucosa with chronic inflammatory cell infiltrates in the lamina propria consisting of lymphocytes and plasma cells, consistent with mild chronic gastritis. GROSS DESCRIPTION A - Received in fixative is one container labeled with the patient's name and designated antral biopsy. The specimen consists of one irregular fragment of light downey soft tissue that measures 0.4 x 0.3 x 0.1 cm. The specimen is totally submitted in one cassette. B - Received in fixative is one container labeled with the patient's name and designated cecal polyps. The specimen consists of multiple irregular fragments of downey-pink soft tissue mixed with fecal material that in aggregate measure 1.5 x 0.5 x 0.1 cm. The specimen is totally submitted in one cassette. / JOSEPH:ezequiel 05/22/18 TC:1 CPT: 32832 x2
--- NOTE | 2018-05-22 14:09 | SUR.OPER ---
PT'S IV INFILTRATED PRIOR TO START OF EGD IN ENDO. NEW IV STARTED BY ANESTHESIA IN R.FA. ATTEMPTED IV UNSUCCESSFULLY IN L.FA. INFILTRATED IV SITE DC'D BY RN.
--- NOTE | 2018-05-22 14:40 | OP.ENDO_ITS ---
Patient Name: Samir Kathleen Procedure Date: 05/22/2018 1:49 PM Date of : 1945 Age: 72 Procedure: Upper GI endoscopy Indications: Hematochezia Providers: Luis Felipe Guevara MD Medicines: Monitored Anesthesia Care Patient Profile: This is a 72 year old male. Refer to note in patient chart for documentation of history and physical. Complications: No immediate complications. Procedure: Pre-Anesthesia Assessment: - Prior to the procedure, a History and Physical was performed, and patient medications and allergies were reviewed. The patient is competent. The risks and benefits of the procedure and the sedation options and risks were discussed with the patient. All questions were answered and informed consent was obtained. Patient identification and proposed procedure were verified by the physician, the nurse and the high school biology teacher in the procedure room. Mental Status Examination: alert and oriented. Airway Examination: normal oropharyngeal airway and neck mobility. Respiratory Examination: clear to auscultation. CV Examination: normal. Prophylactic Antibiotics: The patient does not require prophylactic antibiotics. Prior Anticoagulants: The patient has taken no previous anticoagulant or antiplatelet agents. ASA Grade Assessment: III - A patient with severe systemic disease. After reviewing the risks and benefits, the patient was deemed in satisfactory condition to undergo the procedure. The anesthesia plan was to use moderate sedation / analgesia (conscious sedation). Immediately prior to administration of medications, the patient was re-assessed for adequacy to receive sedatives. The heart rate, respiratory rate, oxygen saturations, blood pressure, adequacy of pulmonary ventilation, and response to care were monitored throughout the procedure. The physical status of the patient was re-assessed after the procedure. After obtaining informed consent, the endoscope was passed under direct vision. Throughout the procedure, the patient's blood pressure, pulse, and oxygen saturations were monitored continuously. The gastroscope was introduced through the mouth, and advanced to the jejunum. The upper GI endoscopy was accomplished without difficulty. The patient tolerated the procedure well. Scope In: 2:08:53 PM Scope Out: 2:15:58 PM Total Procedure Duration Time 0 hours 7 minutes 5 seconds Findings: The examined jejunum was normal. Many non-bleeding superficial duodenal ulcers with no stigmata of bleeding were found in the duodenal bulb. The largest lesion was 2 mm in largest dimension. Localized mild inflammation characterized by erythema was found in the gastric antrum. A large hiatal hernia was present. The examined esophagus was normal. Impression: - Normal examined jejunum. - Multiple non-bleeding duodenal ulcers with no stigmata of bleeding. - Gastritis. - Large hiatal hernia. - Normal esophagus. - No specimens collected. Recommendation: - [facility]. - Resume previous diet. - Use Protonix (pantoprazole) 40 mg PO daily. - Return to my office in 1 week. - Continue present medications. Procedure Code(s): --- Professional --- 24110, Esophagogastroduodenoscopy, flexible, transoral; diagnostic, including collection of specimen(s) by brushing or washing, when performed (separate procedure) CPT copyright 2017 [employer]. All rights reserved. The codes documented in this report are preliminary and upon yarn sorter review may be revised to meet current compliance requirements. Luis Felipe Guevara MD 05/22/2018 2:39:37 PM This report has been signed electronically. Number of Addenda: 0 Note Initiated On: 05/22/2018 1:49 PM
--- NOTE | 2018-05-22 14:43 | OP.ENDO_ITS ---
Patient Name: Samir Kathleen Procedure Date: 05/22/2018 2:17 PM Date of : 1945 Age: 72 Procedure: Colonoscopy Indications: Heme positive stool Providers: Luis Felipe Guevara MD Medicines: Monitored Anesthesia Care Patient Profile: This is a 72 year old male. Refer to note in patient chart for documentation of history and physical. Last Colonoscopy: more than 3 years ago. Complications: No immediate complications. Procedure: Pre-Anesthesia Assessment: - Prior to the procedure, a History and Physical was performed, and patient medications and allergies were reviewed. The patient is competent. The risks and benefits of the procedure and the sedation options and risks were discussed with the patient. All questions were answered and informed consent was obtained. Patient identification and proposed procedure were verified by the physician, the nurse and the camp housekeeper in the procedure room. Mental Status Examination: alert and oriented. Airway Examination: normal oropharyngeal airway and neck mobility. Respiratory Examination: clear to auscultation. CV Examination: normal. Prophylactic Antibiotics: The patient does not require prophylactic antibiotics. Prior Anticoagulants: The patient has taken no previous anticoagulant or antiplatelet agents. ASA Grade Assessment: III - A patient with severe systemic disease. After reviewing the risks and benefits, the patient was deemed in satisfactory condition to undergo the procedure. The anesthesia plan was to use moderate sedation / analgesia (conscious sedation). Immediately prior to administration of medications, the patient was re-assessed for adequacy to receive sedatives. The heart rate, respiratory rate, oxygen saturations, blood pressure, adequacy of pulmonary ventilation, and response to care were monitored throughout the procedure. The physical status of the patient was re-assessed after the procedure. After I obtained informed consent, the scope was passed under direct vision. Throughout the procedure, the patient's blood pressure, pulse, and oxygen saturations were monitored continuously. The Colonoscope was introduced through the anus and advanced to 4 cm into the ileum. The colonoscopy was performed without difficulty. The patient tolerated the procedure well. The quality of the bowel preparation was good. Scope In: 2:18:15 PM Scope Withdrawal Time 0 hours 10 minutes 55 seconds Scope Out: 2:30:59 PM Total Procedure Duration Time 0 hours 12 minutes 44 seconds Findings: The perianal and digital rectal examinations were normal. The terminal ileum appeared normal. Eight sessile polyps were found in the ascending colon and cecum. The polyps were medium in size. These polyps were removed with a hot snare. Resection was complete, but the polyp tissue was only partially retrieved. Many small and large-mouthed diverticula were found in the entire colon. The retroflexed view of the distal rectum and anal verge was normal and showed no anal or rectal abnormalities. Impression: - The examined portion of the ileum was normal. - Eight medium polyps in the ascending colon and in the cecum, removed with a hot snare. Complete resection. Partial retrieval. - Diverticulosis in the entire examined colon. - The distal rectum and anal verge are normal on retroflexion view. Recommendation: - Discharge patient to home. - Resume previous diet. - Continue present medications. - Return to my office in 1 week. - Repeat colonoscopy in 2 years for surveillance. Procedure Code(s): --- Professional --- 36214, Colonoscopy, flexible; with removal of tumor(s), polyp(s), or other lesion(s) by snare technique CPT copyright 2017 [employer]. All rights reserved. The codes documented in this report are preliminary and upon helper animal laboratory review may be revised to meet current compliance requirements. Luis Felipe Guevara MD 05/22/2018 2:43:29 PM This report has been signed electronically. Number of Addenda: 0 Note Initiated On: 05/22/2018 2:17 PM
--- NOTE | 2018-05-22 15:21 | DCINST_ITS ---
- Discharge Diagnoses Current Active Problems: Current Active and Chronic Problems Lower GI bleed (Acute) Acute kidney injury (Acute) Allergies/Adverse Reactions: Allergies atorvastatin calcium [From Lipitor] Adverse Reaction (Verified 05/21/18 10:02) Pain in joints lisinopril Adverse Reaction (Verified 05/21/18 10:02) Swelling Medications to take at Discharge Metoprolol Tartrate [Lopressor (beta elizabeth)] 50 mg PO BID 12/01/13 Simvastatin [Zocor] 40 mg PO QHS 12/01/13 Tamsulosin HCl [Flomax] 0.4 mg PO DAILY 12/01/13 Amlodipine [Norvasc] 5 mg PO DAILY 05/16/15 Budesonide/Formoterol 160/4.5 [Symbicort 160/4.5 Mcg Inhaler (SP)] 2 puff INHALATION BID 05/16/15 Multivitamins,Therapeutic [Multivitamin] 1 tab PO DAILY 05/16/15 Sildenafil Citrate [Viagra] 100 mg PO PRN PRN 05/16/15 traMADol [Ultram] 50 mg PO Q6H PRN PRN 05/16/15 Esomeprazole Mag Trihydrate [Nexium] 20 mg PO DAILY 05/21/18 Primary Care Physician: Alberto Woods MD [Primary Care Provider] - Test Results: Test results from this visit will be discussed in further detail at your follow- up appointment, if applicable.
--- NOTE | 2018-05-22 15:28 | DCINST_ITS ---
- Discharge Diagnoses Current Active Problems: Current Active and Chronic Problems Lower GI bleed (Acute) Acute kidney injury (Acute) You will use the following diet at home:: High fiber Your food should be the consistency of: Regular Your liquids should be the consistency of: Regular/Thin Discharge Activity: Return to Normal Activity Weight Bearing Status: Weight bearing as tolerated Call your doctor if you observe: - - rectal bleeding Allergies/Adverse Reactions: Allergies atorvastatin calcium [From Lipitor] Adverse Reaction (Verified 05/21/18 10:02) Pain in joints lisinopril Adverse Reaction (Verified 05/21/18 10:02) Swelling Medications to take at Discharge Metoprolol Tartrate [Lopressor (beta elizabeth)] 50 mg PO BID 12/01/13 Simvastatin [Zocor] 40 mg PO QHS 12/01/13 Tamsulosin HCl [Flomax] 0.4 mg PO DAILY 12/01/13 Amlodipine [Norvasc] 5 mg PO DAILY 05/16/15 Budesonide/Formoterol 160/4.5 [Symbicort 160/4.5 Mcg Inhaler (SP)] 2 puff INHALATION BID 05/16/15 Multivitamins,Therapeutic [Multivitamin] 1 tab PO DAILY 05/16/15 Sildenafil Citrate [Viagra] 100 mg PO PRN PRN 05/16/15 traMADol [Ultram] 50 mg PO Q6H PRN PRN 05/16/15 Pantoprazole Sodium [Protonix] 40 mg PO DAILY #30 tablet 05/22/18 The following prescriptions were given: Pantoprazole Sodium [Protonix] 40 mg PO DAILY #30 tablet Primary Care Physician: Alberto Woods MD [Primary Care Provider] - Please follow up with your Primary Care Physician in: one week Test Results: Test results from this visit will be discussed in further detail at your follow- up appointment, if applicable. gut Please Follow Up With: Luis Felipe Guevara MD When: 1 week Proposed Discharge Date: 05/22/18
--- NOTE | 2018-05-22 15:28 | PCM.DC.SUM ---
Discharge Date and Diagnosis - Problem List Patient Problems: Active and Suspected Problems Lower GI bleed (Acute) Acute kidney injury (Acute) Date of Admission: 05/21/18 Date of Discharge: 05/22/18 - Primary Discharge Diagnosis Active and Suspected Problems Lower GI bleed (Acute) Acute kidney injury (Acute) - Secondary Discharge Diagnosis Chronic Problems History of chronic obstructive pulmonary disease (Chronic) Benign prostatic hypertrophy (Chronic) COPD (chronic obstructive pulmonary disease) (Chronic) Essential hypertension (Chronic) Diverticulosis of colon without diverticulitis (Chronic) s/p left hemicolectomy 1990 for diverticulitis DJD (degenerative joint disease) (Chronic) Hospital Course and Treatment Imaging Results: Diagnostic Data Abdomen/Pelvis CT 05/21/18 10:19 IMPRESSION: Multiple small gallstones. Calcifications in the pancreas suggestive of chronic pancreatitis. Diffuse irregular bladder wall thickening worse on the left side. Anal hernia. Electronically Signed: Magen Juan MD at 11:25 EST Tel [phone], Service support , Chest X-Ray 05/22/18 05:55 IMPRESSION: Chronic interstitial lung changes without superimposed acute alveolar disease. Electronically Signed: Jaylon Chappell MD at 8:49 EST Tel , Service support , general surgery- Dr Guevara Operations: None Procedures: Colonoscopy - and EGD Summary of Care Provided: [] The patient is a 72 year old M past medical history as listed below including history of hemicolectomy on account of diverticular disease. He was admitted through the ED on 05/21/2018 with a complaint of rectal bleeding which started around 8 AM of morning of admission. He was admitted and managed for lower GI bleeding possibly due to diverticulosis. Was also managed for AK I which resolved with IV fluid administration. General surgery was consulted and he had EGD and colonoscopy on 05/22/2018 findings of which were many nonbleeding superficial duodenal ulcers with no stigmata of bleeding and localized mild inflammation characterized by erythema in the gastric antrum as well as a large hiatal hernia present. Colonoscopy showed 8 medium polyps in the ascending colon and the cecum which was removed with a hot snare with complete resection and partial removal as well as diverticulosis in the entire examined colon. Patient remained stable after procedure and was discharged on p.o. Protonix 40 mg daily. He is to follow-up with his primary care physician and with general surgery in 1 week. He is to have repeat colonoscopy in 2 years for surveillance. Patient seen and examined prior to discharge. He had no complaints and felt well. He denied any fever chills, cough or chest pain, shortness of breath, abdominal pain, diarrhea vomiting. He had had just scant rectal bleeding overnight. Labs and vitals reviewed. Home medications reviewed and reconciled. o/e: vitals: Vital Signs Height 6 ft Weight: 182 lb 15.739 oz Weight in Pounds 183.0 lbs Pulse Ox 92 Temperature 98.8 F Pulse Rate [Standing] 97 Pulse Rate [Sitting] 90 Pulse Rate [Lying] 86 Pulse Rate 66 Respiratory Rate 16 Blood Pressure [Standing] 96/61 Blood Pressure [Sitting] 96/61 Blood Pressure [Lying] 136/76 Blood Pressure 131/74 Blood Pressure Position Semi-Fowlers General: Alert, Oriented x3, Cooperative, No apparent distress HEENT: Atraumatic, PERRLA, EOMI, Normocephalic Oral: Moist Mucosa Neck: Supple, No JVD, Negative Carotid Bruits Lungs: Clear to auscultation, Normal air movement, No rhonchi, No wheeze, No rales Cardiovascular: Regular rate, Regular Rhythm, Normal S1, Normal S2, No murmurs Abdomen: Bowel Sounds Present, Soft, Non Tender, Non-Distended, No Hepato-splenomegaly Extremities: No clubbing, No cyanosis, No edema, Capillary Refill Less than 3 Seconds Skin: No rashes, No breakdown Musculoskeletal: No Tenderness to Palpation of Joints or Extremities Lymphatic: No Cervical, Supraclavicular, or Inguinal Adenopathy Neurological: Cranial nerves II-XII grossly intact, Neuro grossly intact, Motor Exam 5/5 strength throughout Psych/Mental Status: Normal Affect, Appropriate, Alert and oriented to time, place, person, mood and affect Plan as discussed above. Patient Problems: Active and Suspected Problems Lower GI bleed (Acute) Acute kidney injury (Acute) - Physical Exam Vital Signs Temp Pulse Resp BP Pulse Ox 98.8 F 66 16 131/74 H 92 05/22/18 14:55 05/22/18 14:55 05/22/18 14:55 05/22/18 14:55 05/22/18 14:55 Oxygen Flow Rate (L/min) 2 Oxygen Delivery Method Room Air Weight: 182 lb 15.739 oz Body Mass Index (BMI) 24.7 Intake and Output for Last 24 Hours 05/20/18 05/21/18 05/22/18 23:59 23:59 23:59 Intake Total 1225 / 1225 2347 / 2347 Output Total 950 / 950 Balance 1225 / 1225 1397 / 1397 Microbiology Past 72 Hours 05/21/18 10:25 Stool Occult Blood (VARGAS) - Final Stool Occult Blood Positive Laboratory Tests Past 24 Hrs 05/22/18 05/22/18 04:50 04:50 WBC 9.0 RBC 3.16 L Hgb 10.4 L Hct 31.3 L MCV 99.1 H MCH 32.9 H MCHC 33.2 RDW 16.7 H RDW Differential 57.4 H Plt Count 215 MPV 12.4 H Immature Gran % (Auto) 0.100 Neut % (Auto) 68.6 Lymph % (Auto) 15.2 L [place] % (Auto) 15.2 H Eos % (Auto) 0.1 Baso % (Auto) 0.8 Absolute Neuts (auto) 6.2 Absolute Lymphs (auto) 1.36 Total Counted Not Reportable Sodium 140 Potassium 4.1 Chloride 103 Carbon Dioxide 24.0 Anion Gap 13 BUN 33 H Creatinine 1.39 H Estim Creat Clear Calc 51.18 Est GFR (MDRD) Af Amer 64 Est GFR (MDRD) Non-Af 53 L BUN/Creatinine Ratio 23.7 H Glucose 80 Calcium 8.3 L Discharge Activity: Return to Normal Activity Weight Bearing Status: Weight bearing as tolerated Call your doctor if you observe: - - rectal bleeding Home Medications: Medications to take at Discharge Metoprolol Tartrate [Lopressor (beta elizabeth)] 50 mg PO BID 12/01/13 Simvastatin [Zocor] 40 mg PO QHS 12/01/13 Tamsulosin HCl [Flomax] 0.4 mg PO DAILY 12/01/13 Amlodipine [Norvasc] 5 mg PO DAILY 05/16/15 Budesonide/Formoterol 160/4.5 [Symbicort 160/4.5 Mcg Inhaler (SP)] 2 puff INHALATION BID 05/16/15 Multivitamins,Therapeutic [Multivitamin] 1 tab PO DAILY 05/16/15 Sildenafil Citrate [Viagra] 100 mg PO PRN PRN 05/16/15 traMADol [Ultram] 50 mg PO Q6H PRN PRN 05/16/15 Pantoprazole Sodium [Protonix] 40 mg PO DAILY #30 tablet 05/22/18 Following Prescrptions Were Given to Patient: Pantoprazole Sodium [Protonix] 40 mg PO DAILY #30 tablet Primary Care Physician: Alberto Woods MD [Primary Care Provider] - Please follow up with your Primary Care Physician in: one week Please Follow Up With: Luis Felipe Guevara MD When: 1 week Disposition: Home Minutes spent on discharge:: 40 Patient Condition:: Good Medical Necessity - Tobacco Use Smoking Status: Former smoker Tobacco Use: Non-smoker Meaningful Use Info Meaningful Use Diagnoses (Choose all that apply): None applicable Code Visit Inpatient E&M: 53554 Disch Hosp
--- NOTE | 2018-05-22 15:34 | DS.PCM_ITS ---
Discharge Date and Diagnosis - Problem List Patient Problems: Active and Suspected Problems Lower GI bleed (Acute) Acute kidney injury (Acute) Date of Admission: 05/21/18 Date of Discharge: 05/22/18 - Primary Discharge Diagnosis Active and Suspected Problems Lower GI bleed (Acute) Acute kidney injury (Acute) - Secondary Discharge Diagnosis Chronic Problems History of chronic obstructive pulmonary disease (Chronic) Benign prostatic hypertrophy (Chronic) COPD (chronic obstructive pulmonary disease) (Chronic) Essential hypertension (Chronic) Diverticulosis of colon without diverticulitis (Chronic) s/p left hemicolectomy 1990 for diverticulitis DJD (degenerative joint disease) (Chronic) Hospital Course and Treatment Imaging Results: Diagnostic Data Abdomen/Pelvis CT 05/21/18 10:19 IMPRESSION: Multiple small gallstones. Calcifications in the pancreas suggestive of chronic pancreatitis. Diffuse irregular bladder wall thickening worse on the left side. Anal hernia. Electronically Signed: Magen Juan MD at 11:25 EST Tel [phone], Service support , Chest X-Ray 05/22/18 05:55 IMPRESSION: Chronic interstitial lung changes without superimposed acute alveolar disease. Electronically Signed: Jaylon Chappell MD at 8:49 EST Tel , Service support , general surgery- Dr Guevara Operations: None Procedures: Colonoscopy - and EGD Summary of Care Provided: [] The patient is a 72 year old M past medical history as listed below including history of hemicolectomy on account of diverticular disease. He was admitted through the ED on 05/21/2018 with a complaint of rectal bleeding which started around 8 AM of morning of admission. He was admitted and managed for lower GI bleeding possibly due to diverticulosis. Was also managed for AK I which resolved with IV fluid administration. General surgery was consulted and he had EGD and colonoscopy on 05/22/2018 findings of which were many nonbleeding superficial duodenal ulcers with no stigmata of bleeding and localized mild inflammation characterized by erythema in the gastric antrum as well as a large hiatal hernia present. Colonoscopy showed 8 medium polyps in the ascending colon and the cecum which was removed with a hot snare with complete resection and partial removal as well as diverticulosis in the entire examined colon. Patient remained stable after procedure and was discharged on p.o. Protonix 40 mg daily. He is to follow-up with his primary care physician and with general surgery in 1 week. He is to have repeat colonoscopy in 2 years for surveillance. Patient seen and examined prior to discharge. He had no complaints and felt well. He denied any fever chills, cough or chest pain, shortness of breath, ab dominal pain, diarrhea vomiting. He had had just scant rectal bleeding overnight. Labs and vitals reviewed. Home medications reviewed and reconciled. o/e: vitals: Vital Signs Height 6 ft Weight: 182 lb 15.739 oz Weight in Pounds 183.0 lbs Pulse Ox 92 Temperature 98.8 F Pulse Rate [Standing] 97 Pulse Rate [Sitting] 90 Pulse Rate [Lying] 86 Pulse Rate 66 Respiratory Rate 16 Blood Pressure [Standing] 96/61 Blood Pressure [Sitting] 96/61 Blood Pressure [Lying] 136/76 Blood Pressure 131/74 Blood Pressure Position Semi-Fowlers General: Alert, Oriented x3, Cooperative, No apparent distress HEENT: Atraumatic, PERRLA, EOMI, Normocephalic Oral: Moist Mucosa Neck: Supple, No JVD, Negative Carotid Bruits Lungs: Clear to auscultation, Normal air movement, No rhonchi, No wheeze, No rales Cardiovascular: Regular rate, Regular Rhythm, Normal S1, Normal S2, No murmurs Abdomen: Bowel Sounds Present, Soft, Non Tender, Non-Distended, No Hepato- splenomegaly Extremities: No clubbing, No cyanosis, No edema, Capillary Refill Less than 3 Seconds Skin: No rashes, No breakdown Musculoskeletal: No Tenderness to Palpation of Joints or Extremities Lymphatic: No Cervical, Supraclavicular, or Inguinal Adenopathy Neurological: Cranial nerves II-XII grossly intact, Neuro grossly intact, Motor Exam 5/5 strength throughout Psych/Mental Status: Normal Affect, Appropriate, Alert and oriented to time, place, person, mood and affect Plan as discussed above. Patient Problems: Active and Suspected Problems Lower GI bleed (Acute) Acute kidney injury (Acute) - Physical Exam Vital Signs Temp Pulse Resp BP Pulse Ox 98.8 F 66 16 131/74 H 92 05/22/18 14:55 05/22/18 14:55 05/22/18 14:55 05/22/18 14:55 05/22/18 14:55 Oxygen Flow Rate (L/min) 2 Oxygen Delivery Method Room Air Weight: 182 lb 15.739 oz Body Mass Index (BMI) 24.7 Intake and Output for Last 24 Hours 05/20/18 05/21/18 05/22/18 23:59 23:59 23:59 Intake Total 1225 / 1225 2347 / 2347 Output Total 950 / 950 Balance 1225 / 1225 1397 / 1397 Microbiology Past 72 Hours 05/21/18 10:25 Stool Occult Blood (VARGAS) - Final Stool Occult Blood Positive Laboratory Tests Past 24 Hrs 05/22/18 05/22/18 04:50 04:50 WBC 9.0 RBC 3.16 L Hgb 10.4 L Hct 31.3 L MCV 99.1 H MCH 32.9 H MCHC 33.2 RDW 16.7 H RDW Differential 57.4 H Plt Count 215 MPV 12.4 H Immature Gran % (Auto) 0.100 Neut % (Auto) 68.6 Lymph % (Auto) 15.2 L [place] % (Auto) 15.2 H Eos % (Auto) 0.1 Baso % (Auto) 0.8 Absolute Neuts (auto) 6.2 Absolute Lymphs (auto) 1.36 Total Counted Not Reportable Sodium 140 Potassium 4.1 Chloride 103 Carbon Dioxide 24.0 Anion Gap 13 BUN 33 H Creatinine 1.39 H Estim Creat Clear Calc 51.18 Est GFR (MDRD) Af Amer 64 Est GFR (MDRD) Non-Af 53 L BUN/Creatinine Ratio 23.7 H Glucose 80 Calcium 8.3 L Discharge Activity: Return to Normal Activity Weight Bearing Status: Weight bearing as tolerated Call your doctor if you observe: - - rectal bleeding Home Medications: Medications to take at Discharge Metoprolol Tartrate [Lopressor (beta elizabeth)] 50 mg PO BID 12/01/13 Simvastatin [Zocor] 40 mg PO QHS 12/01/13 Tamsulosin HCl [Flomax] 0.4 mg PO DAILY 12/01/13 Amlodipine [Norvasc] 5 mg PO DAILY 05/16/15 Budesonide/Formoterol 160/4.5 [Symbicort 160/4.5 Mcg Inhaler (SP)] 2 puff INHALATION BID 05/16/15 Multivitamins,Therapeutic [Multivitamin] 1 tab PO DAILY 05/16/15 Sildenafil Citrate [Viagra] 100 mg PO PRN PRN 05/16/15 traMADol [Ultram] 50 mg PO Q6H PRN PRN 05/16/15 Pantoprazole Sodium [Protonix] 40 mg PO DAILY #30 tablet 05/22/18 Following Prescrptions Were Given to Patient: Pantoprazole Sodium [Protonix] 40 mg PO DAILY #30 tablet Primary Care Physician: Alberto Woods MD [Primary Care Provider] - Please follow up with your Primary Care Physician in: one week Please Follow Up With: Luis Felipe Guevara MD When: 1 week Disposition: Home Minutes spent on discharge:: 40 Patient Condition:: Good Medical Necessity - Tobacco Use Smoking Status: Former smoker Tobacco Use: Non-smoker Meaningful Use Info Meaningful Use Diagnoses (Choose all that apply): None applicable Code Visit Inpatient E&M: 48549 Disch Hosp
[2018-05-22] MEDS: amLODIPine 5 MG Tablet PO (15:49)
--- NOTE | 2018-05-24 09:55 | CASEMGMT ---
RN CM Discharge Follow-up Phone Call: LATOSHA: Annette Strata: 3 Call Date: 05/24/18 Discharge Date: 05/22/18 Time of Call: 954 Duration: 0 ? Admitting Diagnosis: Lower GI bleed This RN CM attempted to contact pt via telephone in regard to discharge follow-up. Phone rang but no voicemail or answer received.
== END 2018-05-22 16:27 | disposition home or self-care (01) | DRG 378 ==
LOC: ED 12:44 → PCU 18:15
PROVIDERS: Surgery; Admitting Provider Student in an Organized Health Care Education/Training Program; Emergency Provider Emergency Medicine; Family Provider Family Medicine; PCP Family Medicine; Visit Provider Student in an Organized Health Care Education/Training Program
PROC: 0DJD8ZZ Inspection of Lower Intestinal Tract, Via Natural or Artificial Opening Endoscopic (ICD-10-PCS; CPT 45378; principal; 2018-05-22 12:55)
DX: K57.31 Diverticulosis of large intestine without perforation or abscess with bleeding (principal); N17.9 Acute kidney failure, unspecified; E78.5 Hyperlipidemia, unspecified; I10 Essential (primary) hypertension; J44.9 Chronic obstructive pulmonary disease, unspecified; N40.0 Benign prostatic hyperplasia without lower urinary tract symptoms; K44.9 Diaphragmatic hernia without obstruction or gangrene; K26.9 Duodenal ulcer, unspecified as acute or chronic, without hemorrhage or perforation; K29.70 Gastritis, unspecified, without bleeding; Z87.891 Personal history of nicotine dependence; Z90.49 Acquired absence of other specified parts of digestive tract; Z79.899 Other long term (current) drug therapy; M19.90 Unspecified osteoarthritis, unspecified site
CPT/HCPCS: 36415; 71045; 74176; 80048; 82274; 85025; 85610; 85730; 86850; 86900; 88305; 88342; 93005; 94640; 99285; J7030; A4216

== ENCOUNTER 2019-08-03 12:24 | Emergency (ER) | payer MEDICARE, OTHER, SELFPAY ==
[2018-05-22 11:58] VITALS: BMI 24.7
[2019-08-03 12:32] VITALS: TEMP -17.7; TEMP 0
[2019-08-03 12:36] VITALS: BP 0/0; PULSE 0; RESP 0
--- NOTE | 2019-08-03 12:46 | ED.DCSUM_ITS ---
- ER Visit Summary Date of Service: 08/03/19 Chief Complaint: Unresponsive in asystole History of Present Illness: The patient is a 73 M history of COPD, hypertension and high cholesterol. Patient reportedly has a DNR but not on file. with outside the home when she came back inside she found him unresponsive on the floor. Told paramedics unreliable at 1154 or The: Out when they arrived he was unresponsive. Asystole. Patient was given bicarb and epinephrine with no response has been asystole the entire time. Physical Examination: Older male intubated. He has no vital signs. No carotid or radial pulses. He is unresponsive. His pupils are unreactive. Eyes are closed. No breath sounds. No heart tones on exam. No signs of trauma. Abdomen soft. Nondistended. Pelvic girdle intact. Extremities are flaccid and nonresponsive. With all pulses. Cool to the touch. Blue. Neurologically he is unresponsive. Test Results: None Emergency Department Course and Treatment: Asystole both on the renewable energy division manager and on the monitor. Patient was pronounced at 12:35 PM on August 03, 2019. Treatment Plan: Body protocol [place] [facility] [place]: [place]yst[place] Pronounced at 12:35 PM on August 03, 2019 This note was generated with [employer] dictation software. It may contain incorrect words, spelling, and punctuation that were not noted in review of the chart prior to signing ED Disposition - Plan for ED Patient: Referrals: Alberto Woods MD [Primary Care Provider] -
--- NOTE | 2019-08-03 13:27 | ED.RN ---
pt had less than 200cc of normal saline
--- NOTE | 2019-08-03 14:33 | ED.RN ---
All required steps have been completed on packet. Family repeatedly asking when they can call Brandie to come and get the pt. had steps explained to her about not being able to release pt until [facility] [place] releases him. and family upset. 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 wanted us to have them call while they were here because she does not want to donate. [facility] was called again and advised that she still does not want to donate and wants us to release to the home. Family increasingly upset. Danii castaneda director called at home and this nurse was advised to go ahead and release the body to the home. Brandie called and will be in to get the pt.
--- NOTE | 2019-08-03 14:58 | ED.RN ---
Brandie here to get pt. Yasmany is aware that pt is not released by [facility] and that family is refusing donation.
== END 2019-08-03 15:07 ==
LOC: ED 13:16
PROVIDERS: Emergency Provider Emergency Medicine; PCP Family Medicine
DX: I46.9 Cardiac arrest, cause unspecified (principal); I10 Essential (primary) hypertension; J44.9 Chronic obstructive pulmonary disease, unspecified; E78.00 Pure hypercholesterolemia, unspecified; Z66 Do not resuscitate
CPT/HCPCS: 99281